=== PATIENT | male | born 1945 | race Caucasian/White ===

== ENCOUNTER 2018-09-24 06:10 | Day surgery (SDC) | payer OTHER | END 2018-09-24 11:10 | disposition home or self-care (01) | LOC: AMB-ENDOS 06:10 | DX: D12.2 Benign neoplasm of ascending colon (principal); D12.3 Benign neoplasm of transverse colon; D12.4 Benign neoplasm of descending colon ==

== ENCOUNTER 2019-11-22 09:55 | Outpatient (CLI) | payer OTHER | END 2019-11-22 15:00 | disposition home or self-care (01) | LOC: LAB 09:55 | PROVIDERS: ATTEND Surgery | DX: D12.6 Benign neoplasm of colon, unspecified (principal); D12.2 Benign neoplasm of ascending colon; K92.1 Melena ==

== ENCOUNTER 2019-12-09 09:34 | Day surgery (SDC) | payer OTHER | END 2019-12-09 16:05 | disposition home or self-care (01) | LOC: AMB-ENDOS 09:34 → ADM 13:45 → AMB-ENDOS 16:05 | PROVIDERS: ATTEND Surgery | DX: K62.89 Other specified diseases of anus and rectum (principal) ==